=== PATIENT | female | born 2005 | race Caucasian/White ===

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

== ENCOUNTER 2023-12-11 13:23 | Emergency (ER) | payer OTHER ==
[2023-12-11 13:35] VITALS: BP 113/67; PULSE 65; RESP 18; TEMP 98.2; BMI 31.9
[2023-12-11] MEDS ORDERED: IBUPROFEN 400 MG TABLET (FP) PO ONE (14:42)
[2023-12-11] MEDS ORDERED: LIDOCAINE 4% PATCH TP ONE (14:43)
[2023-12-11] MEDS: IBUPROFEN 400 MG TABLET (FP) PO ONE (14:52)
[2023-12-11] MEDS: LIDOCAINE 5% TOPICAL PATCH TP ONE (14:52)
[2023-12-11] MEDS ORDERED: LIDOCAINE PATCH REMOVAL MC ONE (22:00)
== END 2023-12-11 16:00 | disposition home or self-care (01) ==
LOC: JER 13:23
DX: R06.02 Shortness of breath (principal); R07.89 Other chest pain
CPT/HCPCS: 71046-TC-FY; 93005; 93010; 99284-25

== ENCOUNTER 2024-07-15 21:33 | Emergency (ER) | payer OTHER ==
[2024-07-15 21:37] VITALS: BP 123/86; PULSE 99; RESP 18; TEMP 97.8; BMI 49.8
[2024-07-15] MEDS: IBUPROFEN 600 MG TABLET (FP) PO ONE (22:03)
[2024-07-15] MEDS ORDERED: IBUPROFEN 600 MG TABLET (FP) PO ONE (22:04)
== END 2024-07-15 22:24 | disposition home or self-care (01) ==
LOC: JERFT 21:33
DX: S61.451A Open bite of right hand, initial encounter (principal); W54.0XXA Bitten by dog, initial encounter
CPT/HCPCS: 99283-25